=== PATIENT | female | born 1970 | race Caucasian/White ===

== ENCOUNTER 2021-04-27 06:15 | Day surgery (SDC) | payer BC ==
[~2021-04-27] VITALS: Ht 167.6 cm; Wt 87.3 kg
[~2021-04-27 06:15] MED LIST: ALBU2.5V5 INH; ALBU4 PO; BENTYL20 MG PO; CRUTCH3 USE; Cipro500 MG PO; JARDIANCE10 MG PO; METF500 PO; OZEMPIC0.25 MG/0. SC; Percocet 10-321 EACH PO
--- NOTE | 2021-04-27 06:40 | NUR ---
VERIFIED ALLERGY LIST WITH PATIENT. PATIENT STATES SHE TOLERATES TORADOL AND "PERCOCET" WITHOUT REACTION.
--- NOTE | 2021-04-27 06:41 | NUR ---
Ambulatory in Day Surgery Surgical site prepped with 2% Chlorhexidine cloth wipe. History, Chart, Medications and Allergies reviewed before start of procedure.Lungs clear T/O to Auscultation. Patient confirms NPO status and agrees with scheduled surgery. Pre-Op teaching done. Pt verbalizes understanding. Patient States Post-Procedure ride home has been arranged. Patient reports completing Chlorhexadine shower X2 prior to admission to hospital.
--- NOTE | 2021-04-27 13:56 | NUR ---
POST OP: REPORT RECEIVED FROM SATURATION DIVERKEE MANRIQUE. PT TO UNIT AT ABOUT 1010. UPON ASSESSMENT PT IS A/O, VSS. SURGICAL SITE WNL, POLAR PAC IN PLACE. PT ABLE TO SLIGHTLY WIGGLE TOES, PULSE +2 IN BLE, SPINAL. PT DENIES PAIN, WILL CTM.
--- NOTE | 2021-04-27 18:24 | NUR ---
SUMMARY: PT IS POD0 R TKA. PT HAS DONE WELL POST OP. A/O, VSS. SURGICAL SITE WNL, LEG ELEVATED AND ICED WHILE AT REST. PT HAS AMBULATED IN ROOM AND CURRENTLY SITTING IN RECLINER. PLAN IS TO WORK WITH THERAPY AND DC TOMORROW. WILL CTM AND REPORT TO CHELSEY SWEET.
--- NOTE | 2021-04-28 03:45 | NUR ---
SHIFT SUMMARY: PT POD#1 FOR RT TKA. ACEWRAP+AQUACEL DRESSING C/D/I. EXTREMITY ELEVATED WITH POLAR PACK IN PLACE. CAP REFILL WNL WITH STRONG PULSE. PAIN BEING MANAGED WITH PERCOCET PER EMAR. PT TOLERATING PO AND SALINE LOCKED. PT AMBULATING TO BATHROOM WITH 1 MINIMAL ASSIST W/FWW+GB. VOIDING WELL. PT AMBULATED IN HALLWAY PRIOR TO GOING TO BED. PT APPEARS TO BE RESTING WELL MOST OF SHIFT.
[2021-04-28] MEDS ORDERED: Plavix75 MG PO (10:04)
[2021-04-28] MEDS ORDERED: Percocet 5-3251 EACH PO (10:05)
--- NOTE | 2021-04-28 13:34 | NUR ---
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 DC INSTRUCTIONS PROVIDED. PT REP UNDERSTANDING THOSE INSTRUCTIONS INCLUDING FU APPT WITH SURGEON, PHYSICAL THERAPY OUTPT, CHANGE DRESSINGS, WHEN TO CALL THE DR, OK TO SHOWER/NO TUB. IV DC'D.
== END 2021-04-28 11:00 | disposition home or self-care (01) ==
LOC: ORSCMMR 06:15 → ORD 07:30 → ORSCMMR 07:30 → SURS 10:06 → ORSCMMR 04-28 11:00
PROVIDERS: Orthopaedic Surgery
PROC: 8E0Y0CZ Robotic Assisted Procedure of Lower Extremity, Open Approach (ICD-10-PCS; principal; 2021-04-27 07:30)
PROC: 0SRC0JA Replacement of Right Knee Joint with Synthetic Substitute, Uncemented, Open Approach (ICD-10-PCS; principal; 2021-04-27 07:30)
DX: M17.11 Unilateral primary osteoarthritis, right knee (principal); J45.909 Unspecified asthma, uncomplicated; E11.9 Type 2 diabetes mellitus without complications; Z79.84 Long term (current) use of oral hypoglycemic drugs; Z79.899 Other long term (current) drug therapy
CPT/HCPCS: 27447; S2900; 73560-RT; 82947; 94760; 97110; 97116; 97161; 97530; A9270; C1776; J0171; J0690; J0735; J1100; J1815; J1885; J2250; J2370; J2405; J2704; J2765; J2795; J7120

== ENCOUNTER 2021-06-18 07:02 | Day surgery (SDC) | payer BC ==
[~2021-06-18] VITALS: Ht 177.8 cm; Wt 84.3 kg
[~2021-06-18 07:02] MED LIST changes: +Percocet 5-3251 EACH PO; +Plavix75 MG PO
--- NOTE | 2021-06-18 09:18 | NUR ---
06/18/21 0918 LUIS DANIEL CAIN PT CRYING AND MOANING IN PAIN. DR. CAMARA AT BEDSIDE. STATES TO GIVE 25MCG Q 3 MINUTES FOR PAIN. SHE IS UNABLE TO VERBALIZE SEVERITY.
--- NOTE | 2021-06-18 10:18 | NUR ---
06/18/21 1018 LUIS DANIEL CAIN ORDER FOR PERCOCET 10/325MG VERBAL ORDER BY DR. MCDERMOTT. GAVE 1-325MG TYLENOL AND 2-5MG OXYCODONE TO = ORDERED DOSE. PAIN CURRENTLY AT A 5/10.
== END 2021-06-18 10:43 | disposition home or self-care (01) ==
LOC: ORSCSDS 07:02
PROVIDERS: Orthopaedic Surgery
PROC: 0SNCXZZ Release Right Knee Joint, External Approach (ICD-10-PCS; principal; 2021-06-18 08:15)
DX: M17.11 Unilateral primary osteoarthritis, right knee (principal); Z96.651 Presence of right artificial knee joint; J45.909 Unspecified asthma, uncomplicated; E11.9 Type 2 diabetes mellitus without complications; I10 Essential (primary) hypertension; F41.9 Anxiety disorder, unspecified; Z79.899 Other long term (current) drug therapy; Z79.84 Long term (current) use of oral hypoglycemic drugs
CPT/HCPCS: 82947; A9270; J0690; J2250; J2704; J3010

== ENCOUNTER → 2021-09-03 | Outpatient (CLI) | payer BC | END | disposition home or self-care (01) | LOC: LAB 10:28 → LAB SHORT 10:28 → LAB FUT 09-01 09:25 | DX: N39.0 Urinary tract infection, site not specified (principal) | CPT/HCPCS: 87086 ==

== ENCOUNTER → 2021-09-08 | Outpatient (CLI) | payer BC | END | disposition home or self-care (01) | LOC: LAB 18:02 → LAB SHORT 18:02 | DX: R30.9 Painful micturition, unspecified (principal); N20.0 Calculus of kidney; N13.1 Hydronephrosis with ureteral stricture, not elsewhere classified | CPT/HCPCS: 87086; 87106 ==